=== PATIENT | female | born 1975 | race Caucasian/White ===

== ENCOUNTER → 2022-06-12 | Outpatient (CLI) | payer OTHER ==
[2022-06-13 10:42] LABS: Candida species (DNA Probe) Negative (NEGATIVE); G. vaginalis (DNA Probe) Positive (NEGATIVE); T. vaginalis (DNA Probe) Negative (NEGATIVE)
== END | disposition home or self-care (01) ==
LOC: LAB 15:00 → LAB SHORT 15:00
PROVIDERS: Registered Nurse Community Health
DX: N89.8 Other specified noninflammatory disorders of vagina (principal)
CPT/HCPCS: 87480; 87510; 87660

== ENCOUNTER → 2022-09-05 | Outpatient (CLI) | payer OTHER ==
[2022-09-06 08:56] LABS: Candida species (DNA Probe) Negative (NEGATIVE); G. vaginalis (DNA Probe) Positive (NEGATIVE); T. vaginalis (DNA Probe) Negative (NEGATIVE)
== END ==
LOC: LAB 16:30 → LAB SHORT 16:30
PROVIDERS: Family Medicine
DX: N76.0 Acute vaginitis (principal)
CPT/HCPCS: 87480; 87510; 87660

== ENCOUNTER 2022-11-06 08:24 | Day surgery (SDC) | payer OTHER ==
[2022-11-06] VITALS (13 sets, daily range): BP systolic 91–138; BP diastolic 57–84
[~2022-11-06] VITALS: Ht 160 cm; Wt 91.8 kg
[~2022-11-06 08:24] MED LIST: ACYC400 PO
--- NOTE | 2022-11-06 09:20 | NUR ---
Ambulatory in Day Surgery History, Chart, Medications and Allergies reviewed before start of procedure. Lungs clear T/O to Auscultation. PT STATES TO HAVE HAD 2 SIPS OF 7-UP AT 0800. SEDATION NURSE AND DR MAYER NOTIFIED. Pre-Op teaching done. Pt verbalizes understanding. Patient States Post-Procedure ride home has been arranged.
--- NOTE | 2022-11-06 09:46 | NUR ---
11/06/22 0946 Aury Farfan HISTORY, CHART, MEDICATIONS AND ALLERGIES REVIEWED BEFORE START OF PROCEDURE. PATIENT CONFIRMS NPO STATUS AND AGREES WITH SCHEDULED PROCEDURE. 3-LEAD EKG REVIEWED WITH PHYSICIAN PRIOR TO START OF PROCEDURE. MONITOR INTACT WITH CONTINUOUS PULSE OXIMETRY,CAPNOGRAPHY, 3-LEAD EKG, INTERMITTENT BP. SUPPLEMENTAL O2 TO BE TITRATED THROUGHOUT PROCEDURE TO MAINTAIN O2 SATURATION ABOVE 90%. PATIENT DETERMINED TO BE ASA APPROPRIATE FOR PROPOFOL SEDATION PRIOR TO START OF PROCEDURE BY DR. MAYER.
--- NOTE | 2022-11-06 10:33 | NUR ---
Patient up to Ambulate independently. Gait steady. Discharge instructions reviewed with patient. Patient verbalizes understanding. Copy given to patient to take home. Discharged via wheelchair to private car for ride home.
== END 2022-11-06 10:34 | disposition home or self-care (01) ==
LOC: ORSCMMR 08:24 → ORD 09:30 → ORSCMMR 09:30
PROVIDERS: Internal Medicine Gastroenterology
PROC: 0DJD8ZZ Inspection of Lower Intestinal Tract, Via Natural or Artificial Opening Endoscopic (ICD-10-PCS; principal; 2022-11-06 09:30)
DX: Z12.11 Encounter for screening for malignant neoplasm of colon (principal); J44.9 Chronic obstructive pulmonary disease, unspecified; F17.210 Nicotine dependence, cigarettes, uncomplicated; Z79.899 Other long term (current) drug therapy
CPT/HCPCS: J2704; J7120

== ENCOUNTER → 2022-12-21 | Outpatient (CLI) | payer OTHER ==
[2022-12-24 15:08] LABS: HPV 16 Negative (Negative); HPV 18 Negative (Negative); HPV OTHER HR TYPES Positive (Negative)
== END | disposition home or self-care (01) ==
LOC: LAB SHORT 17:33 → LAB 17:33
PROVIDERS: Family Medicine
DX: Z12.4 Encounter for screening for malignant neoplasm of cervix (principal)
CPT/HCPCS: 87624; 87625; G0145

== ENCOUNTER 2023-04-19 10:42 | Emergency (ER) | payer OTHER ==
[~2023-04-19] VITALS: Ht 160 cm; Wt 96.2 kg
[2023-04-19 11:16] LABS: BASOPHILS ABSOLUTE AUTO 0.03 K/mm3 (0.00-0.23); BASOPHILS PERCENT AUTO 0 % (0-2); EOSINOPHILS ABSOLUTE AUTO 0.21 K/mm3 (0.00-0.68); EOSINOPHILS PERCENT AUTO 3 % (0-6); Hematocrit 39.7 % (33.0-51.0); IMMATURE GRAN ABSOLUTE AUTO 0.02 K/mm3 (0.00-0.10); IMMATURE GRAN PERCENT AUTO 0 % (0-1); LYMPHOCYTES ABSOLUTE AUTO 2.13 K/mm3 (0.84-5.20); LYMPHOCYTES PERCENT AUTO 28 % (21-46); MONOCYTES ABSOLUTE AUTO 0.54 K/mm3 (0.16-1.47); MONOCYTES PERCENT AUTO 7 % (4-13); Mean Corpuscular HGB 29.2 pg (26.0-34.0); Mean Corpuscular HGB Conc 32.7 g/dL (31.5-36.5); Mean Corpuscular Volume 89 fL (80-100); Mean Platelet Volume 9.9 fL (9.1-12.4); NEUTROPHILS ABSOLUTE AUTO 4.74 K/mm3 (1.96-9.15); NEUTROPHILS PERCENT AUTO 62 % (41-73); Platelet Count 299 K/mm3 (150-400); RDW Coefficient Variation 14.3 % (11.7-14.2); RDW Standard Deviation 46.3 fL (35.1-46.3); Red Blood Cell Count 4.45 M/mm3 (3.80-5.20); White Blood Cell Count 7.67 K/mm3 (4.00-11.30)
[2023-04-19 11:47] LABS: Albumin, Blood 3.9 g/dL (3.4-5.0); Albumin/Globulin Ratio 1.2 (0.8-1.8); Bilirubin, Total 0.2 mg/dL (0.1-1.0); Bun/Creatinine Ratio 15.7 (12.0-20.0); Calcium, Blood 8.5 mg/dL (8.5-10.1); Creatinine, Blood 0.95 mg/dL (0.40-1.00); Globulin, Blood 3.2 g/dL (2.2-4.0); Total Protein, Blood 7.1 g/dL (6.4-8.2)
[2023-04-19 14:34] VITALS: BP 122/74
== END 2023-04-19 14:40 | disposition home or self-care (01) ==
LOC: ER 10:42
PROVIDERS: Physician Assistant
DX: R07.9 Chest pain, unspecified (principal); F17.200 Nicotine dependence, unspecified, uncomplicated
CPT/HCPCS: 71046; 80053; 83690; 84484; 85025; 93005; 93010; 99285-25

== ENCOUNTER → 2023-08-21 | Outpatient (CLI) | payer OTHER | LOC: LAB 07:21 → LAB SHORT 07:21 | DX: R87.810 Cervical high risk human papillomavirus (HPV) DNA test positive (principal); N80.03 Adenomyosis of the uterus | CPT/HCPCS: 88305 ==

== ENCOUNTER 2023-11-07 19:05 | Inpatient (IN) | payer OTHER ==
[~2023-11-07] VITALS: Ht 167.6 cm; Wt 99.0 kg
[2023-11-07 19:50] LABS: BASOPHILS ABSOLUTE AUTO 0.03 K/mm3 (0.00-0.23); BASOPHILS PERCENT AUTO 0 % (0-2); EOSINOPHILS ABSOLUTE AUTO 0.23 K/mm3 (0.00-0.68); EOSINOPHILS PERCENT AUTO 3 % (0-6); Hematocrit 41.1 % (33.0-51.0); Hemoglobin 13.6 g/dL (11.5-16.0); IMMATURE GRAN ABSOLUTE AUTO 0.01 K/mm3 (0.00-0.10); IMMATURE GRAN PERCENT AUTO 0 % (0-1); LYMPHOCYTES ABSOLUTE AUTO 2.32 K/mm3 (0.84-5.20); LYMPHOCYTES PERCENT AUTO 26 % (21-46); MONOCYTES ABSOLUTE AUTO 0.54 K/mm3 (0.16-1.47); MONOCYTES PERCENT AUTO 6 % (4-13); Mean Corpuscular HGB 29.8 pg (26.0-34.0); Mean Corpuscular HGB Conc 33.1 g/dL (31.5-36.5); Mean Corpuscular Volume 90 fL (80-100); Mean Platelet Volume 9.8 fL (9.1-12.4); NEUTROPHILS ABSOLUTE AUTO 5.85 K/mm3 (1.96-9.15); NEUTROPHILS PERCENT AUTO 65 % (41-73); Platelet Count 341 K/mm3 (150-400); RDW Standard Deviation 46.6 fL (35.1-46.3); Red Blood Cell Count 4.56 M/mm3 (3.80-5.20); White Blood Cell Count 8.98 K/mm3 (4.00-11.30)
[2023-11-07 20:11] LABS: Albumin/Globulin Ratio 1.1 (0.8-1.8); Bilirubin, Total 0.3 mg/dL (0.1-1.0); Bun/Creatinine Ratio 21.3 (12.0-20.0); Calcium, Blood 9.5 mg/dL (8.5-10.1); Creatinine, Blood 0.8 mg/dL (0.40-1.00); Globulin, Blood 3.6 g/dL (2.2-4.0); Potassium, Blood 3.7 mmol/L (3.5-5.5); Total Protein, Blood 7.6 g/dL (6.4-8.2)
[2023-11-07 20:22] LABS: Source, Urine Clean Catch
[2023-11-07 20:29] LABS: Bilirubin, Urine Neg (Neg); Blood, Urine Neg (Neg); Glucose Qualitative, Urine Neg (Neg); Ketones, Urine Neg (Neg); Leukocyte Esterase, Urine Neg (Neg); Nitrite, Urine Neg (Neg); Protein, Urine Neg (Neg); Specific Gravity, Urine 1.015 (1.003-1.022); Urobilinogen, Urine NORM (Normal)
[2023-11-07 20:46] LABS: Appearance, Urine Clear (Clear); Color, Urine Yellow (P-Yellow)
[2023-11-07] MEDS ORDERED: Aspirin 81 MG Chew PO ONE (22:15)
[2023-11-07 22:26] LABS: Thyroid Stimulating Hormone 3.79 uIU/mL (0.360-4.800)
[2023-11-07] MEDS ORDERED: PROZAC2010 PO (22:31)
[2023-11-07] MEDS ORDERED: Adipex-P37.5 M1 PO (22:31)
[2023-11-07] MEDS ORDERED: LORA10ER PO (22:32)
[2023-11-07] MEDS ORDERED: Nitroglycerin 1 INCH/GM PKT TOP ONE (22:50)
[2023-11-07] MEDS ORDERED: Nitroglycerin 0.4 MG SUBL SL PRN (23:20)
[2023-11-07] MEDS ORDERED: Acetaminophen 325 MG TABLET PO PRN (23:20)
[2023-11-07] MEDS ORDERED: Ondansetron 4 MG TAB PO PRN (23:20)
[2023-11-07] MEDS ORDERED: Losartan Potassium 25 MG Tab PO SCH (23:28)
[2023-11-07 23:40] LABS: Anti-Xa UFH, PHA Monitoring <0.10 IU/mL; International Normalized Ratio 0.96; Prothrombin Time Results 10.3 Sec (9.7-11.5)
[2023-11-07] MEDS ORDERED: Heparin Sodium 5000 Units/ML 1ML MDV IV ONE (23:45)
[2023-11-07] MEDS ORDERED: Heparin Sodium,Porcine/0.5 NS 500 ML IV SCH (23:45)
[2023-11-08] VITALS (10 sets, daily range): BP systolic 134–153; BP diastolic 75–95
[2023-11-08] MEDS ORDERED: Lactated Ringer's 1,000 ML IV SCH (00:05)
[2023-11-08] MEDS ORDERED: FAMO10 PO (01:39)
[2023-11-08 05:38] LABS: BASOPHILS ABSOLUTE AUTO 0.03 K/mm3 (0.00-0.23); BASOPHILS PERCENT AUTO 0 % (0-2); EOSINOPHILS ABSOLUTE AUTO 0.24 K/mm3 (0.00-0.68); EOSINOPHILS PERCENT AUTO 3 % (0-6); Hematocrit 39.5 % (33.0-51.0); Hemoglobin 12.5 g/dL (11.5-16.0); IMMATURE GRAN ABSOLUTE AUTO 0.02 K/mm3 (0.00-0.10); IMMATURE GRAN PERCENT AUTO 0 % (0-1); LYMPHOCYTES ABSOLUTE AUTO 2.61 K/mm3 (0.84-5.20); LYMPHOCYTES PERCENT AUTO 30 % (21-46); MONOCYTES ABSOLUTE AUTO 0.52 K/mm3 (0.16-1.47); MONOCYTES PERCENT AUTO 6 % (4-13); Mean Corpuscular HGB 29.3 pg (26.0-34.0); Mean Corpuscular HGB Conc 31.6 g/dL (31.5-36.5); Mean Corpuscular Volume 93 fL (80-100); Mean Platelet Volume 10.2 fL (9.1-12.4); NEUTROPHILS ABSOLUTE AUTO 5.17 K/mm3 (1.96-9.15); NEUTROPHILS PERCENT AUTO 60 % (41-73); Platelet Count 318 K/mm3 (150-400); RDW Coefficient Variation 13.9 % (11.7-14.2); RDW Standard Deviation 47.3 fL (35.1-46.3); Red Blood Cell Count 4.27 M/mm3 (3.80-5.20); White Blood Cell Count 8.59 K/mm3 (4.00-11.30)
[2023-11-08 06:24] LABS: Alanine Aminotransfer (ALT/SGP 22 U/L (12-78); Albumin, Blood 3.5 g/dL (3.4-5.0); Albumin/Globulin Ratio 1.1 (0.8-1.8); Alk Phos 36 U/L (50-136); Anion Gap 9 mmol/L (3-11); Aspartate Aminotrans (AST/SGOT 56 U/L (12-37); Bilirubin, Total 0.6 mg/dL (0.1-1.0); Blood Urea Nitrogen 15 mg/dL (8-24); Bun/Creatinine Ratio 21.5 (12.0-20.0); CHOL/HDL RATIO 2.6; CO2, Blood 24 mmol/L (21-32); Calcium, Blood 8.4 mg/dL (8.5-10.1); Chloride, Blood 112 mmol/L (98-108); Cholesterol 176 mg/dL (50-200); Globulin, Blood 3.1 g/dL (2.2-4.0); Glomerular Filtration Rate 107 (60-); Glucose, Blood 108 mg/dL (70-99); HDL Cholesterol 68 mg/dL (>39); LDL/HDL RATIO 1.3; Low Density Lipoprotein Chol 91 mg/dL (0-110); Magnesium, Blood 2.2 mg/dL (1.6-2.4); Potassium, Blood 3.7 mmol/L (3.5-5.5); Sodium, Blood 141 mmol/L (136-145); Total Protein, Blood 6.6 g/dL (6.4-8.2); Triglycerides 87 mg/dL (30-160); Very Low Density Lipoprot Chol 17 mg/dL (6-32)
--- NOTE | 2023-11-08 07:30 | NUR ---
SHIFT SUMMARY PT ARRIVED FROM ED AT ABOUT 0045 AND ORIENTED TO ROOM. PT A&OX4 AND COOPERATIVE OF CARE. TROPONIN'S ELEVATED AND DR GARY NOTIFIED. PER CORE CUTTER, PT DID HAVE AN 8 BEAT RUN OF VTACH AT ABOUT 0530, PT ASYMPTOMATIC. DR GARY NOTIFIED. PT DID REPORT CP HAD LESSENED, AND STATED PAIN IN ARM IS A DULL ACHE. DENIED FEELING SOB. HEPARIN INFUSING PER EMAR. LR INFUSING. PT HAS BEEN NPO. BED IN LOWEST POSITION AND CALL LIGHT IN REACH.
[2023-11-08] MEDS ORDERED: NiCARdipine HCL 1,000 MCG/5 ML SYR ONE (08:28)
[2023-11-08] MEDS ORDERED: NS 250 ML IV ONE (08:28)
[2023-11-08] MEDS ORDERED: Heparin Sodium 1000 Units/ML 10ML MDV ONE (08:28)
[2023-11-08] MEDS ORDERED: Nitroglycerin 2 MG/20 ML BTL ONE (08:28)
[2023-11-08] MEDS ORDERED: NS 1,000 ML IV ONE ×2 (08:28→08:42)
[2023-11-08] MEDS ORDERED: Metoprolol Succinate 25 MG TABCR PO SCH (09:00)
[2023-11-08] MEDS ORDERED: Aspirin 81 MG Chew PO SCH (09:00)
[2023-11-08] MEDS ORDERED: Atorvastatin 40 MG Tab PO SCH (09:00)
[2023-11-08] MEDS ORDERED: FentaNYL Citrate 50 MCG/ML 2 ML Injection ONE (09:29)
[2023-11-08] MEDS ORDERED: Midazolam HCl 1MG / ML 2ML Vial ONE (09:29)
[2023-11-08] MEDS ORDERED: Ticagrelor 90 MG TABLET ONE (09:51)
--- NOTE | 2023-11-08 10:39 | NUR ---
TRANSFER TO PCU Handoff report recieved from RN on medical floor. Patient arrived on PCU from solder making laborer at 1005. TR band located right radial, site WNL, no hematoma. Patient reports pain d/t radial site but no other pain discomfort reported. Right hand/fingers capillary refill <3 sec. Lungs sounds clear, Heart sounds S1S2. Patient denies CP & SOB. Vitals stable. Independent in room, steady gait. Alert & oriented x4. Call-light in place. RN at bedside for s/p monitoring.
--- NOTE | 2023-11-08 11:10 | NUR ---
PT STARTED SHIFT AOX4 AND COOPERATIVE OF CARE. PT WAS ABLE TO MOVE IN ROOM INDPENDENTLY. NO DISTRESS NOTED. PT WAS TAKEN DOWN TO COMMUNITY RELATIONS ADVISOR AND REPORT WAS GIVEN TO KATHE ISSA PRIOR TO PT ARRIVING TO PCU 13.
--- NOTE | 2023-11-08 11:25 | NUR ---
UPDATE: Pt C/O 10/15 chest pain that is non-radiating and worse with deep breath. Physician was notified and Pt treated per ordes. CP down to 07/17 after one dose of nitro. Pt denies needs, at bedside. Call light in reach.
--- NOTE | 2023-11-08 13:37 | NUR ---
TR band inflated w/ 12mL, slowly deflated ballon over last 2 hours. No bleeding observed at site. Will reassess in 1 hour before remove of TR band. No hematoma noted, capillary refill <3 sec.
--- NOTE | 2023-11-08 14:32 | NUR ---
SHIFT SUMMARY Patient alert & oriented x4. TR band deflated, no signs of bleeding at the sight, right radial pulse strong/steady. Applied tagderm to radial site, CDI. Started Heparin gtt 15u/22/5mL/hr, verified w/ 2nd RN. Denies CP, vitals stable. 1 run of 7-beat vtach, no other changes, NSR @ 60. LR 2nd bag ordered, per MD did not give. Updated MD on shift events, no other orders at this time. Handoff report to DIRECTOR PRINT.
[2023-11-08] MEDS ORDERED: FUROSEMIDE20 MG PO (15:25)
--- NOTE | 2023-11-08 18:18 | NUR ---
SHIFT SUMMARY THIS STUDENT RN AND YURI RN TOOK OVER CARE AT 1455. NO ACUTE CHANGES. PT IS A/OX4, USES CALL LIGHT APROPRIATELY AND EXPRESSES NEEDS. HR IS IN SR IN THE HIGH 80'S. BP'S STABLE. PT DID EXPRESS MINOR PAIN TOWARDS LEFT SHOULDER. OFFERED TYLENOL, PT DECLINED AND EXPRESSED THAT IT DOES NOT TOUCH HER PAIN. NO COMPLAINTS OF SOB OR CHEST PRESSURE AT THIS TIME. PT IS ABLE TO AMBULATE FROM BED TO BATHROOM WITHOUT FEELING SOB OR LIGHTHEADED. STABLE ON FEET. NO COMPLAINTS OF GI OR ISSUES. HEPARIN IS RUNNING IN RIGHT FA, SEE EMAR. PT EXPRESSED TENDERNESS AT IV SITE ON LEFT FA, NOTICED REDNESS, REMOVED IV PER PT REQUEST. TR BAND IS IN PLACE WITH ARM BOARD ON RIGHT WRIST. PT EXPRESSED MINOR TENDERNESS, NO SWELLING OR BLEEDING AT THIS TIME . PT IS CURRENTLY IN BED WITH TV ON, CALL LIGHT IN REACH.
--- NOTE | 2023-11-08 18:57 | NUR ---
THIS RN REVIWED AND AGREES WITH STUDENT RN'S NOTES AND CHARTING.
[2023-11-08] MEDS ORDERED: Ticagrelor 90 MG TABLET PO SCH (21:00)
[2023-11-08] MEDS ORDERED: Dose Adjust by Pharmacy XX STA (21:08)
--- NOTE | 2023-11-08 22:19 | NUR ---
ASSUMPTION OF CARE THIS RN ASSUMED CARE OF PT AT 1900, REPORT FROM ADDI ISSA. PT LETHARGIC AND DIFFICULT TO AROUSE AT THIS TIME, PT NOT FOLLOWING COMMANDS HOWEVER DOES BRIEFLY OPEN EYES TO PAINFUL STIMULI. PT ATTEMPTS TO RESPOND TO QUESTIONS BUT SPEECH IS MUMBLED SOUNDS/WORDS. VSS;BP 152/62, HR 87, SPO2 95% ON 4 LPM END TIDAL CO2 ATTACHMENT IN PLACE. RR 26, WOB INCREASED SLIGHTLY PT USING STOMACH MUSCLES TO BREATH. PT WITH TREMORS AND JERKING/RESTLESS MOVEMENT WITH SLEEPING. PT DOES NOT APPEAR TO BE IN DISTRESS AT THIS TIME. LS DIMINISHED T/O WITH EXPIRATORY WHEEZE IN RML AND LLL. PT MAINTAINING AND PROTECTING AIRWAY, PT WITH OCCASSIONAL, DRK/HACKING COUGH - PT CLEARING INDEPENDENTLY. CONDOM CATHETER AND ATTEND IN PLACE AT THIS TIME. NIGHT TIME MEDICATION HELD AT THIS TIME D/T LETHARGY. BED ALARM ON, CALL LIGHT IN REACH, AND ROUNDING.
--- NOTE | 2023-11-08 22:30 | NUR ---
ASSUMPTION OF CARE THIS RN ASSUMED CARE OF PT AT 1900, REPORT FROM YURI RN AND IP VICE PRESIDENT CONSULTING SERVICES. PT RESTING AT TIME OF REPORT, BUT EASILY AWAKENED. VSS. PT DENIES CP/PRESSURE, SOB, DIZZINESS, PALPITATIONS. PT DOES ENDORSE "BACK PAIN" UNDER L SHOULDER BLADE; RATES 7/10 AND DESCRIBES IT DULL, DENIES RADIATING PAIN. ALSO REPORTS MILD HEADACHE. MEDICATION PER MAR, WELL NON-PHARMACOLOGICAL INTERVENTIONS. PT A&O X4, COOPERATIVE WITH CARE. TR BAND FULLY RECOVERED, TEGADERM AND ARMBOARD IN PLACE. PT DENIES NUMBNESS, TINGLING, PAIN. COLOR AND TEMPERATURE WNL. PT USING RESTROOM INDEPENDENTLY, STABLE ON FEET. PT DENIES ISSUES OR CONCERNS GI/. HEPARIN INFUSING PER MAR.
[2023-11-09] VITALS: BP 123/71
[2023-11-09 04:00] VITALS: BP 114/63
[2023-11-09 04:23] LABS: BASOPHILS ABSOLUTE AUTO 0.03 K/mm3 (0.00-0.23); BASOPHILS PERCENT AUTO 0 % (0-2); EOSINOPHILS ABSOLUTE AUTO 0.32 K/mm3 (0.00-0.68); EOSINOPHILS PERCENT AUTO 4 % (0-6); Hemoglobin 13.2 g/dL (11.5-16.0); IMMATURE GRAN ABSOLUTE AUTO 0.03 K/mm3 (0.00-0.10); IMMATURE GRAN PERCENT AUTO 0 % (0-1); LYMPHOCYTES ABSOLUTE AUTO 2.46 K/mm3 (0.84-5.20); LYMPHOCYTES PERCENT AUTO 28 % (21-46); MONOCYTES ABSOLUTE AUTO 0.58 K/mm3 (0.16-1.47); MONOCYTES PERCENT AUTO 7 % (4-13); Mean Corpuscular HGB 29.9 pg (26.0-34.0); Mean Corpuscular Volume 91 fL (80-100); Mean Platelet Volume 9.9 fL (9.1-12.4); NEUTROPHILS ABSOLUTE AUTO 5.48 K/mm3 (1.96-9.15); NEUTROPHILS PERCENT AUTO 62 % (41-73); Platelet Count 350 K/mm3 (150-400); RDW Standard Deviation 46.6 fL (35.1-46.3); Red Blood Cell Count 4.42 M/mm3 (3.80-5.20)
[2023-11-09 04:38] LABS: Bun/Creatinine Ratio 14.6 (12.0-20.0); Calcium, Blood 8.8 mg/dL (8.5-10.1); Creatinine, Blood 0.75 mg/dL (0.40-1.00)
[2023-11-09] MEDS ORDERED: Clarify Drug Order XX ONE (05:10)
--- NOTE | 2023-11-09 06:09 | NUR ---
SHIFT SUMMARY PT REMAINS A&0 X4. VSS; SBP 114 - 137, HR SR/SB WITH PVCS RATE 50 - 60S, AFEBRILE, SPO2 GREATER THAN 96% ON RA. PT DENIES CP/PRESSURE, DIZZINESS, SOB, PALPITATIONS, N/V. PT DID HAVE BACK" PAIN DURING THE NIGHT WHICH SEEMED TO RESOLVE WITH REPOSITIONING AND MEDICATION. PT ALSO REPORTS HEADACHE T/O SHIFT. TYLENOL PER EMAR WITH LITTLE RELIEF. OTHERWISE, PT HAD UNEVENTFUL EVENING. PT AMBULATING AND USING RESTROOM INDEPENDENTLY. HEPARIN INFUSING PER EMAR. CALL LIGHT IN REACH. WILL UPDTE ONCOMING RN
[2023-11-09 07:30] VITALS: BP 124/67
--- NOTE | 2023-11-09 11:16 | NUR ---
AM SUMMARY PATIENT GO UP AND ATE BREAKFAST IN CHAIR. CARDIOLOGY CONSULTED DUE TO ELEVATED TROPONIN. DR. VÁZQUEZ WAS AT [facility] AROUND 0800 REPORTING THAT WE ARE SENDING BLOOD OFF FOR A1C CHECK. PT IS GOING TO BE ON CONTINUOUS HEPARIN GTT FOR THE NEXT [address] MEZA STATED THAT SHE CAN LIKELY BE D/C AFTER HEPARIN GTT FOR 48 HOURS ASSUMING EVERYTHING ELSE GOES WELL. PATIENT DENIED CP, SOB OR PAIN ELSEWHERE THIS MORNING. SHE DID COMPLAIN OF SOME SWELLING IN HER HANDS AND NOT BEING ABLE TO WEAR RINGS. +2 EDEMA ON LOWER LEGS. ALERT AND ORIENTED X4. HRR IS NSR 60-80'S. VITAL SIGNS STABLE, WITH CALL LIGHT IN REACH. WILL CONTINUE TO MONITOR.
[2023-11-09 11:55] VITALS: BP 127/55
[2023-11-09 15:16] VITALS: BP 119/71
[2023-11-09] MEDS ORDERED: Isosorbide Mononitrate 60 MG TABCR PO ONE (15:55)
--- NOTE | 2023-11-09 18:18 | NUR ---
SHIFT SUMMARY AT LUNCH TIME, PT HAD FRIEND COME IN AND ASSIST PT IN WASHING HER HAIR. AT 1545 THE PATIENT COMPLAINED OF L SHOULDER PAIN THAT WAS ACHY AND SHE STATED, "FEELS SIMILAR TO WHEN I CAME IN, BUT NOT INTENSE". TOOK VITALS WHICH WERE WITHIN NORMAL LIMITS W BP OF 114/78 (87). HR 64, T 97.1. CALLED DR. HIDALGO, ORDERED AND GAVE PT 60 MG IMDUR X1 DOSE W/O TYLENOL TO SEE HOW SHE TOLERATED IT. PT DID REPORT A HEADACHE 2 HRS LATER SO WE GAVE TYLENOL. PATIENT HAS NO COMPLAINTS OF PAIN, CP, OR SOB AT THIS TIME. VITALS WERE WITHIN NORMAL LIMITS W SBP 115-130 AND DBP 55-70, SPO2 >90 ON RA. PT DOES HAVE +2 EDEMA IN LOWER LEGS. AND KIDS CAME FOR DINNER TIME AND ARE AT BEDSIDE. CALL LIGHT WITHIN REACH, WILL REPORT TO ONCOMING RN.
[2023-11-09 19:30] VITALS: BP 116/57
--- NOTE | 2023-11-09 22:02 | NUR ---
ASSUMPTION OF CARE THIS RN ASSUMED CARE OF PT AT 1900, REPORT FROM SOCORRO RN AND IP TELETYPESETTER OPERATOR. PT SITTING UP IN BEDSIDE RECLINER, WATCHING TV. PT A&O X4, COOEPRATIVE WITH CARE. PT DENIES CP/PRESSURE, DIZZINESS, SOB, N/V AT REST AND WITH ACTIVITY. PT DOES REPORT L SHOULDER/BACK PAIN THAT IS "DULL", RATES 3-4/10 AT THIS TIME. DECLINES MEDICATIONS AT THIS TIME. VSS. PT DENIES ISSUES GI/. PT AMBULATING AND REPOSITIONING INDEPENDENTLY. HEPARIN INFUSING PER MAR. CALL LIGHT IN REACH, PT DENIES NEEDS AT THIS TIME
[2023-11-10] VITALS: BP 103/52
[2023-11-10 03:56] LABS: Hematocrit 38.6 % (33.0-51.0); Hemoglobin 12.8 g/dL (11.5-16.0); Mean Platelet Volume 9.8 fL (9.1-12.4); Platelet Count 333 K/mm3 (150-400)
[2023-11-10 04:00] VITALS: BP 120/63
[2023-11-10] MEDS ORDERED: Clarify Drug Order XX ONE (04:35)
--- NOTE | 2023-11-10 06:07 | NUR ---
SHIFT SUMMARY PT REMAINS A&O X4. NO ACUTE CHANGES FROM ASSUMPTION OF CARE NOTE. VSS; SBP 103-120, SR/SB WITH HR IN 50 - 60'S, AFEBRILE, REMAINS ON RA WITH SPO2 GREATER THAN 95%. PT CONTINUES TO COMPLAIN OF HEADACHE AND L SHOULDER/BACK PAIN; MEDICATION PER MAR WITH LITTLE RELIEF. OTHERWISE PT HAD UNEVENTFUL EVENING. AMBULATING TO RESTROOM INDEPENDENTLY, TOLERATES WELL. HEPARIN PER EMAR. CALL LIGHT IN REACH, PT ABLE TO MAKE NEEDS KNOWN. WILL UPDATE ONCOMING RN
[2023-11-10 08:26] VITALS: BP 125/56
[2023-11-10] MEDS ORDERED: Isosorbide Mononitrate 60 MG TABCR PO SCH (09:00)
--- NOTE | 2023-11-10 09:59 | NUR ---
AM SHIFT IS AT BEDSIDE AND BROUGHT HER A BAGEL SANDWICH FOR BREAKFAST. VITALS WERE WITHIN NORMAL LIMITS. DR. VÁZQUEZ WAS AT BEDSIDE THIS MORNING AND TOLD PT THAT ONCE HER 48 HR HEP GTT WAS DONE WE WOULD PUT HER IN D/C. HER D/C WILL BE UP ABOUT 1430 TODAY. PT STATED SHE HAD A HEADACHE THIS MORNING AND THAT THE TYLENOL DOESN'T WORK. PT SAID, "I TAKE 4 IBUPROFEN AND 500 MG OF TYLENOL AT HOME". DR. VÁZQUEZ INFORMED PT OF RISK RETURNING HOME AND TAKING NSAIDS. OFFERED 5 OF NORCO IF SHE REALLY NEEDED IT BUT PT DENIED NORCO. NO REPORTS OF L SHOULDER PAIN, SOB OR CP ANYMORE. CALL LIGHT IS WITHIN REACH, WILL CONTINUE TO MONITOR.
[2023-11-10 11:22] VITALS: BP 124/61
[2023-11-10] MEDS ORDERED: ASPI81CH PO (14:17)
[2023-11-10] MEDS ORDERED: LIPITOR80 MG PO (14:17)
[2023-11-10] MEDS ORDERED: Isosorbide Mono30 MG PO (14:18)
[2023-11-10] MEDS ORDERED: LOSA25 PO (14:18)
[2023-11-10] MEDS ORDERED: TICA90TA PO (14:19)
[2023-11-10] MEDS ORDERED: NITR.4SL SL (14:19)
[2023-11-10] MEDS ORDERED: METO25ER PO (14:19)
--- NOTE | 2023-11-10 14:56 | NUR ---
AM SUMMARY PATIENT REPORTED A HEADACHE AT 1400. SHE TRIED TO LAY BACK IN CHAIR AND DARK ROOM. HEADACHE WAS UNMANAGEABLE SO SHE ASKED FOR TYLENOL. PATIENTS VITALS WERE ALL WITHIN NORMAL LIMITS ALL DAY, SPO2 >[address] VÁZQUEZ PUT IN DISCHARGE ORDERS FOR HER TO GO AT 1430. INSTRUCTED PT TO FOLLOW UP WITH PRIMARY CARE AND NEW MEDICATIONS PRESCRIBED. NEW MEDS WERE SENT TO [facility] FOR PT TO CHARGING BOARD OPERATOR.
--- NOTE | 2023-11-10 15:07 | NUR ---
HEPARIN GTT WAS STOPPED AT 1430 BEFORE DISCHARGE.
[2023-11-11 13:41] LABS: INSULIN FREE 7 uIU/mL (3-25); TOTAL INSULIN 8 uIU/mL (3-25)
== END 2023-11-10 14:51 | disposition home or self-care (01) | DRG 280 ==
LOC: ER 19:05 → MEDS 23:15 → PCU 23:15 → MEDS 11-08 00:40 → PCU 11-08 10:16
PROVIDERS: Emergency Medicine; Internal Medicine; Nurse Practitioner; ADMIT Student in an Organized Health Care Education/Training Program
PROC: B2111ZZ Fluoroscopy of Multiple Coronary Arteries using Low Osmolar Contrast (ICD-10-PCS; principal; 2023-11-08)
PROC: 4A023N7 Measurement of Cardiac Sampling and Pressure, Left Heart, Percutaneous Approach (ICD-10-PCS; 2023-11-08)
DX: I21.4 Non-ST elevation (NSTEMI) myocardial infarction (principal); I25.42 Coronary artery dissection; I25.10 Atherosclerotic heart disease of native coronary artery without angina pectoris; F41.9 Anxiety disorder, unspecified; F17.290 Nicotine dependence, other tobacco product, uncomplicated; E88.810 Metabolic syndrome
CPT/HCPCS: 36415; 71046; 71260; 76937; 80048; 80053; 80061; 81003; 81025; 83036; 83525; 83527; 83735; 84443; 84484; 85014; 85018; 85025; 85049; 85520; 85610; 85730; 93005; 93010; 93306; 93454; 94762; 99152; 99153; 99285-25; A9270; C1769; C1887; C1894; J1644; J2250; J3010; J7030; J7050; J7120; Q9967

== ENCOUNTER 2023-12-05 07:55 | Observation (INO) | payer OTHER ==
[~2023-12-05] VITALS: Ht 160 cm; Wt 102.0 kg
[~2023-12-05 07:55] MED LIST changes: +ASPI81CH PO; +Adipex-P37.5 M1 PO; +ERGO400; +FAMO10 PO; +FUROSEMIDE20 MG PO; +IRON; +Isosorbide Mono30 MG PO; +LIPITOR80 MG PO; +LORA10ER PO; +LOSA25 PO; +METO25ER PO; +NITR.4SL SL; +PROZAC2010 PO; +TICA90TA PO
[2023-12-05] MEDS ORDERED: FURO20 PO (08:11)
[2023-12-05 08:24] LABS: BASOPHILS ABSOLUTE AUTO 0.04 K/mm3 (0.00-0.23); BASOPHILS PERCENT AUTO 1 % (0-2); EOSINOPHILS ABSOLUTE AUTO 0.19 K/mm3 (0.00-0.68); EOSINOPHILS PERCENT AUTO 2 % (0-6); Hematocrit 37.5 % (33.0-51.0); Hemoglobin 12.1 g/dL (11.5-16.0); IMMATURE GRAN ABSOLUTE AUTO 0.01 K/mm3 (0.00-0.10); IMMATURE GRAN PERCENT AUTO 0 % (0-1); LYMPHOCYTES ABSOLUTE AUTO 2.28 K/mm3 (0.84-5.20); LYMPHOCYTES PERCENT AUTO 28 % (21-46); MONOCYTES ABSOLUTE AUTO 0.54 K/mm3 (0.16-1.47); MONOCYTES PERCENT AUTO 7 % (4-13); Mean Corpuscular HGB 29.7 pg (26.0-34.0); Mean Corpuscular HGB Conc 32.3 g/dL (31.5-36.5); Mean Corpuscular Volume 92 fL (80-100); Mean Platelet Volume 10.1 fL (9.1-12.4); NEUTROPHILS ABSOLUTE AUTO 5.18 K/mm3 (1.96-9.15); NEUTROPHILS PERCENT AUTO 63 % (41-73); Platelet Count 278 K/mm3 (150-400); RDW Coefficient Variation 13.8 % (11.7-14.2); RDW Standard Deviation 47.2 fL (35.1-46.3); Red Blood Cell Count 4.07 M/mm3 (3.80-5.20); White Blood Cell Count 8.24 K/mm3 (4.00-11.30)
[2023-12-05 08:43] LABS: Albumin, Blood 3.7 g/dL (3.4-5.0); Albumin/Globulin Ratio 1.1 (0.8-1.8); Bilirubin, Total 0.6 mg/dL (0.1-1.0); Bun/Creatinine Ratio 15.5 (12.0-20.0); Calcium, Blood 8.7 mg/dL (8.5-10.1); Creatinine, Blood 0.78 mg/dL (0.40-1.00); Globulin, Blood 3.3 g/dL (2.2-4.0)
[2023-12-05] MEDS ORDERED: Nitroglycerin 1 INCH/GM PKT TOP ONE (09:25)
[2023-12-05] MEDS ORDERED: Nitroglycerin 0.4 MG SUBL SL SCH (10:20)
[2023-12-05] MEDS ORDERED: Ondansetron HCl 2 MG / ML 2ML Vial IV PRN (10:25)
[2023-12-05] MEDS ORDERED: Acetaminophen 325 MG TABLET PO PRN (10:25)
[2023-12-05] MEDS ORDERED: FAMO20 PO (14:17)
[2023-12-05 17:08] VITALS: BP 105/61
--- NOTE | 2023-12-05 17:55 | NUR ---
END OF SHIFT SUMMARY ASSUMED CARE FROM ED AT 1400. PT A/0X5, PLEASANT, AND COOPERATIVE WITH CARE. SBP 100'S, HR 50'S-60'S. ALL LUNG BAIRES CLEAR T/O. PT AMBULATING INDEPENDENTLY IN THE ROOM. FAMILY AT BEDSIDE. WILL GIVE REPORT TO ONCOMING RN AND CONTINUE TO MONITOR.
--- NOTE | 2023-12-05 19:05 | NUR ---
ASSUMPTION OF CARE: ASSUMED CARE OF PT AT 1900 AFTER REPORT FROM CONCHIS ISSA. UPON INITIAL ASSESSMENT. PT IS AXO 4 AND ENGAGES IN CONVERSATION. SHE REPORTS HER C/P IS CONTROLLED AND STATES SHE JUST HAS "THE NORMAL PRESSURE THAT SHE NOMALLY HAS" NITRO PASTE IS ON FROM ER ADMISSION. B/P STABLE 140/71S. HR IS NSR AT 60BPM. SHE HAS CLEAR LUNG SOUNDS, DENIES N/V/D, NO ABDOMINAL DISTENTION. AMBULATES INDEPENDENTLY IN ROOM. TROPS HAVE ALL BEEN NEGATIVE. HX OF MD 11/07/23 W/O F/U FROM CARDIOLOGY. SHE CURRENTLY IS RESTING IN BED WITH S/O AND DAUGHTER AT [facility]. CALL LIGHT IN REACH AND ALL VSS. DENIES NEEDS.
[2023-12-05 19:58] VITALS: BP 140/70
[2023-12-05] MEDS ORDERED: Ticagrelor 90 MG TABLET PO SCH (21:00)
[2023-12-05 23:53] VITALS: BP 110/66
[2023-12-06 03:46] VITALS: BP 127/51
[2023-12-06 03:50] LABS: Hematocrit 37.1 % (33.0-51.0); Hemoglobin 11.9 g/dL (11.5-16.0); Mean Corpuscular HGB 29.6 pg (26.0-34.0); Mean Corpuscular HGB Conc 32.1 g/dL (31.5-36.5); Mean Corpuscular Volume 92 fL (80-100); Mean Platelet Volume 10.1 fL (9.1-12.4); Platelet Count 244 K/mm3 (150-400); RDW Coefficient Variation 13.8 % (11.7-14.2); RDW Standard Deviation 47.5 fL (35.1-46.3); Red Blood Cell Count 4.02 M/mm3 (3.80-5.20); White Blood Cell Count 6.68 K/mm3 (4.00-11.30)
[2023-12-06 04:32] LABS: Bun/Creatinine Ratio 19.3 (12.0-20.0); Calcium, Blood 8.7 mg/dL (8.5-10.1); Creatinine, Blood 0.88 mg/dL (0.40-1.00); Potassium, Blood 4.2 mmol/L (3.5-5.5)
--- NOTE | 2023-12-06 05:32 | NUR ---
PCU PARATRANSIT DRIVER SUMMARY: PT REMAINED STABLE T/O THE NIGHT WITH NO CHANGES IN CONDITION SINCE ASSUMPTION OF CARE NOTE. SHE REPORTED NO NEW OR WORSENING C/P. ALL VS REMAINED STABLE. DENIED SOB. AT BEDSIDE UNTIL AROUND 0000. DAUGHTER CONTINUES TO ACCOMPANY PT T/O THE NIGHT. PT DENIED ANY NEEDS AND EXPRESSED NO CONCERNS. CALL LIGHT IN REACH.
[2023-12-06 08:45] VITALS: BP 136/88
[2023-12-06] MEDS ORDERED: Enoxaparin 40 MG/0.4 ML SYR SC SCH (09:00)
[2023-12-06] MEDS ORDERED: Atorvastatin 40 MG Tab PO SCH (09:00)
[2023-12-06] MEDS ORDERED: Ferrous Sulfate 325 MG Tab PO SCH ×2 (09:00→21:00)
[2023-12-06] MEDS ORDERED: FLUoxetine HCL 20 MG CAP PO SCH ×2 (09:00→21:00)
[2023-12-06] MEDS ORDERED: Losartan Potassium 25 MG Tab PO SCH (09:00)
[2023-12-06] MEDS ORDERED: Isosorbide Mononitrate 60 MG TABCR PO SCH (09:00)
[2023-12-06] MEDS ORDERED: Metoprolol Succinate 25 MG TABCR PO SCH (09:00)
[2023-12-06] MEDS ORDERED: Aspirin 81 MG Chew PO SCH ×2 (09:00→21:00)
[2023-12-06] MEDS ORDERED: Furosemide 40 MG Tab PO SCH (09:00)
--- NOTE | 2023-12-06 11:12 | NUR ---
SHIFT SUMMARY/DISCHARGE NOTE: ASSUMED PT CARE W PRIMARY RN AT 0700. PT A/Ox4, APPROPRIATE AND COOPERATIVE W CARE. VSS T:98.7, P:67, B/P:136/88, RR:18, O2: 100% ON RA. PT DENIES CURRENT CHEST PN/PRESSURE. DENIES N/V/D, DENIES DIZZINESS. PT REPORTS NO SOB IN ROOM. PT HAS NO C/O IN THE ROOM. PT SEE BY DR. MARTIN TODAY, PLEASE SEE NOTES. PT WILL BE D/C TO HOME, Rx HAS BEEN CALLED TO PT's PHARMACY. PT AND FAMILY UNDERSTOOD PLANS AND WILL F/U W/ COMMERCIAL BANKER ON 12/08. PT AMBULATED IN THE ROOM, GAIT IS STABLE. IV LINES, CORD AND OTHER LINES ARE REMOVED. PT WALKED OUT OF THE ROOM W/ ALL HER BELONGINGS ACCOUNTED FOR. NO ACUTE CHANGES. PT IS ASSISTED BY FAMILY MEMBER TO HER VEHICLE.
--- NOTE | 2023-12-06 11:15 | NUR ---
DISCHARGE: DISCHARGE INFORMATION INCLUDING MEDICATION LIST, FOLLOW UP APPOINTMENTS AND EDUCATION REVIEWED WITH PT. PT VERBALIZES UNDERSTANDING OF INSTRUCTIONS AND HAS NO QUESTIONS AT THIS TIME. PRESCRIPTIONS CALLED IN TO [facility] PER PT REQUEST. THIS RN LEFT A VM WITH THE PHARMACY WITH CALL BACK NUMBER INCASE OF ANY QUESTIONS. IV AND TELEMETRY REMOVED. PT WILL FOLLOW UP WITH CARDIOLOGY AND PCP INSTRUCTED. ALL BELONGINGS SENT HOME WITH PT. PT TO BE TRANSPORTED HOME WITH FAMILY. NO FURTHER DISCHARGE NEEDS IDENTIFIED AT THIS TIME.
== END 2023-12-06 11:34 | disposition home or self-care (01) ==
LOC: ER 07:55 → ERHOLD 07:56 → PCU 14:06
PROVIDERS: Student in an Organized Health Care Education/Training Program; ADMIT Internal Medicine
DX: I25.118 Atherosclerotic heart disease of native coronary artery with other forms of angina pectoris (principal); I10 Essential (primary) hypertension; E78.5 Hyperlipidemia, unspecified; E66.9 Obesity, unspecified; F41.9 Anxiety disorder, unspecified; Z68.34 Body mass index [BMI] 34.0-34.9, adult; Z79.899 Other long term (current) drug therapy
CPT/HCPCS: 36415; 71046; 80048; 80053; 83880; 84484; 85025; 85027; 93005; 93010; 96372; 99285-25; A9270; G0378; J1650

== ENCOUNTER 2023-12-26 10:45 | Observation (INO) | payer OTHER ==
[~2023-12-26] VITALS: Ht 160 cm; Wt 107.1 kg
[~2023-12-26 10:45] MED LIST changes: +FAMO20 PO; +FURO20 PO
[2023-12-26] MEDS ORDERED: BRILINTA90 M7 PO (11:13)
[2023-12-26 11:44] LABS: BASOPHILS ABSOLUTE AUTO 0.03 K/mm3 (0.00-0.23); BASOPHILS PERCENT AUTO 0 % (0-2); EOSINOPHILS ABSOLUTE AUTO 0.12 K/mm3 (0.00-0.68); EOSINOPHILS PERCENT AUTO 2 % (0-6); Hematocrit 39.3 % (33.0-51.0); Hemoglobin 12.9 g/dL (11.5-16.0); IMMATURE GRAN ABSOLUTE AUTO 0.02 K/mm3 (0.00-0.10); IMMATURE GRAN PERCENT AUTO 0 % (0-1); LYMPHOCYTES ABSOLUTE AUTO 2.09 K/mm3 (0.84-5.20); LYMPHOCYTES PERCENT AUTO 29 % (21-46); MONOCYTES ABSOLUTE AUTO 0.45 K/mm3 (0.16-1.47); MONOCYTES PERCENT AUTO 6 % (4-13); Mean Corpuscular HGB 29.8 pg (26.0-34.0); Mean Corpuscular HGB Conc 32.8 g/dL (31.5-36.5); Mean Corpuscular Volume 91 fL (80-100); Mean Platelet Volume 9.8 fL (9.1-12.4); NEUTROPHILS ABSOLUTE AUTO 4.56 K/mm3 (1.96-9.15); NEUTROPHILS PERCENT AUTO 63 % (41-73); Platelet Count 326 K/mm3 (150-400); RDW Coefficient Variation 14.4 % (11.7-14.2); RDW Standard Deviation 47.9 fL (35.1-46.3); Red Blood Cell Count 4.33 M/mm3 (3.80-5.20); White Blood Cell Count 7.27 K/mm3 (4.00-11.30)
[2023-12-26] MEDS ORDERED: Aspirin 325 MG Tab PO ONE (12:00)
[2023-12-26 12:19] LABS: Albumin/Globulin Ratio 1.1 (0.8-1.8); Bilirubin, Total 0.6 mg/dL (0.1-1.0); Bun/Creatinine Ratio 10.7 (12.0-20.0); Calcium, Blood 9.2 mg/dL (8.5-10.1); Creatinine, Blood 0.93 mg/dL (0.40-1.00); Globulin, Blood 3.6 g/dL (2.2-4.0); Potassium, Blood 3.6 mmol/L (3.5-5.5); Total Protein, Blood 7.6 g/dL (6.4-8.2)
[2023-12-26] MEDS ORDERED: NS 1,000 ML IV SCH (12:50)
[2023-12-26 18:53] VITALS: BP 138/74
[2023-12-26] MEDS ORDERED: Ticagrelor 90 MG TABLET PO SCH (21:00)
[2023-12-27 04:47] VITALS: BP 121/57
--- NOTE | 2023-12-27 05:17 | NUR ---
BOTTOM LOADER PATIENT IS A&OX4, VITALS ARE STABLE, ON ROOM AIR. DENIED ANY PAIN. TELE IS RUNNING SINUS RHYTHM AT 60 WITH OCCASIONAL SINUS ASH AT 55. PATIENT IS INDEPENDENT IN ROOM AND KNOWS TO CALL FOR HELP NEEDED.
[2023-12-27 07:46] VITALS: BP 108/63
[2023-12-27] MEDS ORDERED: Furosemide 20 MG Tab PO SCH ×2 (09:00)
[2023-12-27] MEDS ORDERED: Aspirin 81 MG Chew PO SCH ×2 (09:00→21:00)
[2023-12-27] MEDS ORDERED: FLUoxetine HCL 20 MG CAP PO SCH ×2 (09:00→21:00)
[2023-12-27] MEDS ORDERED: Metoprolol Succinate 25 MG TABCR PO SCH (09:00)
[2023-12-27] MEDS ORDERED: Isosorbide Mononitrate 60 MG TABCR PO SCH (09:00)
[2023-12-27] MEDS ORDERED: Enoxaparin 40 MG/0.4 ML SYR SC SCH (09:00)
[2023-12-27] MEDS ORDERED: Losartan Potassium 25 MG Tab PO SCH (09:00)
[2023-12-27] MEDS ORDERED: Atorvastatin 40 MG Tab PO SCH (09:00)
[2023-12-27] MEDS ORDERED: ACYC400 PO (13:35)
[2023-12-27] MEDS ORDERED: Betamethasone V15 GM TOP (13:37)
[2023-12-27] MEDS ORDERED: FERSU300 PO (15:09)
--- NOTE | 2023-12-27 16:00 | NUR ---
DISCHARGE INSTRUCTIONS COMPLETED AND DISCUSSED WITH PT EXPRESSING UNDERSTANDING. NO NEW SCRIPTS. TO CURB VIA W/C WITH SISTER.
== END 2023-12-27 16:26 | disposition home or self-care (01) ==
LOC: ER 10:45 → MEDS 10:46 → ENPENDDIS 12-27 16:23 → MEDS 12-27 16:26
PROVIDERS: Nurse Practitioner; ADMIT Internal Medicine
DX: I25.110 Atherosclerotic heart disease of native coronary artery with unstable angina pectoris (principal); E78.5 Hyperlipidemia, unspecified; I10 Essential (primary) hypertension; E66.01 Morbid (severe) obesity due to excess calories; Z79.899 Other long term (current) drug therapy; Z87.891 Personal history of nicotine dependence
CPT/HCPCS: 71046; 80053; 84484; 85025; 93005; 93010; 96360; 96372; 99285-25; A9270; G0378; J1650; J7030

== ENCOUNTER 2024-10-19 08:09 | Day surgery (SDC) | payer OTHER ==
[~2024-10-19] VITALS: Ht 160 cm; Wt 88.2 kg
[2024-10-19] VITALS (14 sets, daily range): BP systolic 98–119; BP diastolic 39–67
[~2024-10-19 08:09] MED LIST changes: +BRILINTA90 M7 PO; +Betamethasone V15 GM TOP; +Bupivacaine 0.5% W/EPI 1:200000 SDV 30 ML Vial ONE; +ELIQUIS2.5 MG PO; +FERSU300 PO; +MULTI-VITAMIN1 EAC2 PO; +PANT40 PO; +THERA-D2000 UNIT PO; +URSO300 PO
[2024-10-19] MEDS ORDERED: CeFAZolin Sodium 2,000 MG VIAL ONE (09:18)
[2024-10-19] MEDS ORDERED: CeFAZolin Sodium 2,000 MG in NS 100 ML IV SCH (09:20)
[2024-10-19] MEDS ORDERED: Lactated Ringer's 1,000 ML IV SCH ×2 (09:20→11:10)
[2024-10-19] MEDS ORDERED: propofoL 20 ML IV ONE (09:35)
[2024-10-19] MEDS ORDERED: FentaNYL Citrate 50 MCG/ML 2 ML Injection ONE ×2 (09:35→10:27)
[2024-10-19] MEDS ORDERED: Midazolam HCl 1MG / ML 2ML Vial ONE (09:35)
[2024-10-19] MEDS ORDERED: Ondansetron HCl 2 MG / ML 2ML Vial ONE (09:42)
[2024-10-19] MEDS ORDERED: Dexamethasone Sod Phos 10 MG/ML 1ML VIAL ONE (09:42)
[2024-10-19] MEDS ORDERED: Ketorolac Tromethamine 30mg Vial ONE (10:44)
[2024-10-19] MEDS ORDERED: Labetalol HCL 5 MG/ML 4ML Injection (Single Dose) IV PRN (10:45)
[2024-10-19] MEDS ORDERED: FentaNYL Citrate 50 MCG/ML 2 ML Injection IV PRN ×2 (10:45→10:50)
[2024-10-19] MEDS ORDERED: ePHEDrine Sulfate 50 MG/ML 1ML Injection IV PRN (10:45)
[2024-10-19] MEDS ORDERED: Sugammadex Sodium 200 MG/2ML SDV (100 MG/ML) ONE (10:45)
[2024-10-19] MEDS ORDERED: Albuterol 2.5 MG/3 ML VIAL INH PRN (10:45)
[2024-10-19] MEDS ORDERED: HYDROmorphone HCl/Pf 1MG SYR IV PRN ×2 (10:45→11:10)
[2024-10-19] MEDS ORDERED: Metoclopramide HCl 5MG / ML 2ML Vial IV PRN (10:45)
[2024-10-19] MEDS ORDERED: Morphine Sulfate 4 MG/1 ML Injection IV PRN (10:45)
[2024-10-19] MEDS ORDERED: Ondansetron HCl 2 MG / ML 2ML Vial IV PRN ×2 (10:50→11:10)
[2024-10-19] MEDS ORDERED: Scopolamine Hydrobromide Patch TOP SCH (10:50)
[2024-10-19] MEDS ORDERED: OxyCODONE HCL 5 MG TAB PO PRN (11:10)
[2024-10-19] MEDS ORDERED: Acetaminophen 500 MG Tab PO PRN (11:10)
[2024-10-19] MEDS ORDERED: Simethicone 80 MG Chew PO PRN (11:10)
--- NOTE | 2024-10-19 11:55 | NUR ---
ARRIVAL NOTE PT. ARRIVED TO SURG FLOOR AT 1155. AMBULATED TO BATHROOM TO ATTEMPT TO VOID, DRIBBLE VOIDED. PT IS CURRENTLY EATING. SURGICAL DRESSINGS ARE DRY AND INTACT. VS STABLE. HEART AND LUNG SOUNDS ASCULTATES AND CLEAR. DENIES PAIN OR NAUSEA.
[2024-10-19] MEDS ORDERED: Acetaminophen325 M1 PO (14:12)
[2024-10-19] MEDS ORDERED: SIME80CH PO (14:13)
[2024-10-19] MEDS ORDERED: OXYC5 PO (14:13)
[2024-10-19] MEDS ORDERED: IBUP800 PO (14:14)
--- NOTE | 2024-10-19 14:26 | NUR ---
PT. DISCHARGED AT 1425. DISCHARGE EDUCATION PROVIDED. MEDICATION LIST REVIEWED. POST-OP HYSTERECTOMY CARE DIRECTIONS PROVIDED. PT PAIN WELL CONTROLLED, VS STABLE. EATING AND VOIDING WELL. STEADY GAIT, AMBULATES INDEPENDENTLY. NO VAGINAL BLEEDING, SURGICAL SITE WNL. PT ESCORTED OUT VIA WC.
[2024-10-19] MEDS ORDERED: Ursodiol 300 MG Cap PO SCH (18:00)
[2024-10-20] MEDS ORDERED: Pantoprazole Sodium 40 MG Tab PO SCH (06:00)
[2024-10-20] MEDS ORDERED: Cholecalciferol 1000 Unit Tablet (=25MCG) PO SCH (09:00)
[2024-10-20] MEDS ORDERED: FLUoxetine HCL 20 MG CAP PO SCH (09:00)
[2024-10-20] MEDS ORDERED: Acyclovir 400 MG Tab PO SCH (09:00)
[2024-10-20] MEDS ORDERED: Metoprolol Succinate 25 MG TABCR PO SCH (09:00)
== END 2024-10-19 12:03 | disposition home or self-care (01) ==
LOC: ORSCMMR 08:09 → ORD 09:30 → SURS 11:36 → ORD 12:00 → ORSCMMR 12:03
PROVIDERS: Obstetrics & Gynecology
PROC: 0UT7FZZ Resection of Bilateral Fallopian Tubes, Via Natural or Artificial Opening With Percutaneous Endoscopic Assistance (ICD-10-PCS; principal; 2024-10-19 09:30)
PROC: 0UT9FZZ Resection of Uterus, Via Natural or Artificial Opening With Percutaneous Endoscopic Assistance (ICD-10-PCS; principal; 2024-10-19 09:30)
DX: N80.03 Adenomyosis of the uterus (principal); N84.0 Polyp of corpus uteri; N92.0 Excessive and frequent menstruation with regular cycle; D50.9 Iron deficiency anemia, unspecified; I25.2 Old myocardial infarction; Z79.899 Other long term (current) drug therapy; F17.210 Nicotine dependence, cigarettes, uncomplicated; R87.810 Cervical high risk human papillomavirus (HPV) DNA test positive
CPT/HCPCS: 86850; 86900; 86901; 88307; A9270; J0690; J1100; J1171; J1885; J2250; J2405; J2704; J3010; J7120